=== PATIENT | male | born 1995 | race Caucasian/White ===

== ENCOUNTER 2022-03-18 10:19 | Emergency (ER) | payer BC, SELFPAY ==
[2022-03-18 11:12] VITALS: BP 119/71; PULSE 66; RESP 18; TEMP 36.4; O2SAT 98
--- NOTE | 2022-03-18 11:19 | PC.NURSE ---
Pt states he recently had stomach bacterial infection while in the [facility]. States he was placed Amoebriz for one day, and Propinox Clorhidrato
--- NOTE | 2022-03-18 11:48 | ED.LOWEXIN ---
HPI - Extremity Injury (Lower) General Chief Complaint: Extremity Injury, Lower Stated Complaint: rt calf pain Time Seen by Provider: 03/18/22 11:45 Source: patient Mode of arrival: ambulatory Limitations: no limitations History of Present Illness HPI Narrative: 26 y/o male presented for c/o right calf pain, onset last night. Pain 3/. Denies redness/discoloration, swelling or pain with ambulating. Patient is active, plays baseball regularly. States he had been sitting on a barstool in an awkward position with pressure on the forefoot and calf flexed for several hours. Endorses these barstools have caused foot pain in the past. Endorses recent travel; 6 hour plane rides 5 times in the last month. Took aspirin at 0300. Wore compression sock last night. Endorses pain felt throbbing but is decreased at this time. Denies numbness tingling or weakness. Denies injury. Denies hx dvt. Related Data Home Medications Medication Instructions Recorded Confirmed No Home Medications 03/18/22 03/18/22 Allergies Allergy/AdvReac Type Severity Reaction Status Date / Time Sulfa (Sulfonamide Allergy Unknown Verified 03/18/22 11:18 Antibiotics) Review of Systems Review of Systems: CONSTITUTIONAL: Denies body aches, fever, chills CARDIOVASCULAR: Denies chest pain, palpitations, or edema. RESPIRATORY: Denies cough or dyspnea. GASTROINTESTINAL: Denies abdominal pain, nausea, vomiting, or diarrhea. SKIN: Denies rash, itching, or wounds. MUSCULOSKELETAL: Per HPI NEUROLOGIC: Denies headache, numbness, tingling, or weakness. All systems reviewed & are unremarkable except as noted in HPI and below PMFSH Comments At time of signature, I have reviewed and agree with nursing past medical, surgical, social and family history unless otherwise noted. Please see nursing chart for further information. There is no relevant family history pertinent to the presenting complaint Exam Narrative: GENERAL: Well-appearing, well-nourished CHEST: LCTAB. HEART: Regular rate and rhythm. Normal and equal peripheral pulses. EXTREMITIES: RLE has normal strength and sensation, normal range of motion. No calf tenderness with plantar/dorsiflexion. No edema, redness/discoloration or ecchymosis, No point tenderness. No apparent superficial venous thrombosis or phlebitis. No open wounds or obvious deformity; pulse palpable and equal bilaterally, skin warm, dry, pink. Capillary refill less than 3 seconds. Ambulates with steady gait SKIN: Warm, dry, no rash. NEURO: Alert and oriented x3. PSYCH: Normal mood and affect Course Course Emergency Course: Patient is aware of diagnosis, understands and agrees to treatment plan. Anticipatory guidance given. Patient agrees to follow-up as directed and is aware of reasons to seek care at the emergency department. Portions of this record may have been created with voice recognition software Level of Care: Express Care Visit Vital Signs Vital signs: Vital Signs Temperature 97.5 F L 03/18/22 11:12 Pulse Rate 66 03/18/22 11:12 Respiratory Rate 18 03/18/22 11:12 Blood Pressure 119/71 03/18/22 11:12 Pulse Oximetry 98 03/18/22 11:12 Oxygen Delivery Room Air 03/18/22 11:12 Temperature 97.5 F L 03/18/22 11:12 Pulse Rate 66 03/18/22 11:12 Respiratory Rate 18 03/18/22 11:12 Blood Pressure 119/71 03/18/22 11:12 Pulse Oximetry 98 03/18/22 11:12 Oxygen Delivery Room Air 03/18/22 11:12 Reviewed MDM - Extremity Injury (Lower) MDM Narrative Medical decision making narrative: Wells criteria negative for DVT. patient reported significant improvement in pain after Toradol given. Advised supportive measures and signs/symptoms to go to the ER. Pt is appropriate for outpt treatment and f/u. Differential Diagnosis Differential diagnosis: Likely other (dvt ,cellulitis, superficial thrombophlebitis, muscle strain) Discharge Plan Discharge Clinical Impression: Strain of right calf mus
[2022-03-18] MEDS: KETOROLAC (*BKC) 60 MG/2 ML VIAL IM (12:01)
== END 2022-03-18 12:33 | disposition home or self-care (01) ==
PROVIDERS: Emergency Provider Nurse Practitioner Family
DX: S86.111A Strain of other muscle(s) and tendon(s) of posterior muscle group at lower leg level, right leg, initial encounter (principal); X50.1XXA Overexertion from prolonged static or awkward postures, initial encounter
CPT/HCPCS: 96372; 99203; G0463; J1885